=== PATIENT | female | born 1970 | race American Indian/Alaskan Native ===

== ENCOUNTER 2018-07-08 11:26 | Emergency (ER) | payer OTHER ==
[2018-07-08 11:44] VITALS: BP 131/95
--- NOTE | 2018-07-08 11:45 | Emergency Department Report ---
Chief Complaint: Arrhythmia/Palpitations Stated Complaint: DRYNESS IN MOUTH/HEART PALP Time Seen by Provider: 07/08/18 11:39 - HPI History of Present Illness: monday night (07/06/18) took a zyrtec started experiencing lightheadedness, palpitations, warmth of the skin no facial edema, no angioedema, no rash pt was seen at [facility] on monday night, states was given IVF and low dose aspirin began experiencing lightheadedness and palpitations again today PMHx HTN, takes amlodipine/hctz takes it at night, anemia/thalassemia never had elevated HR previously no CP, no SOB, no N/V HR is 123 EKG with sinus tach MSE screening note: Focused history and physical exam performed. Due to findings the following was ordered: EKG, labs ED Disposition for MSE Condition: Stable
[2018-07-08 12:10] LABS: Mean Corpuscular HGB Conc 30 % (30-34); Platelet Count 333 K/mm3 (140-440); Red Blood Count 5.73 M/mm3 (3.65-5.03)
[2018-07-08 12:11] LABS: Hemoglobin 11.2 gm/dl (10.1-14.3); Mean Corpuscular Volume 65 fl (79-97)
[2018-07-08 12:22] LABS: BUN/Creatinine Ratio 18; Blood Urea Nitrogen 11 mg/dL (7-17); Calcium 9.4 mg/dL (8.4-10.2); Hemolysis Index 0
[2018-07-08 13:24] LABS: Total Cells Counted 100
[2018-07-08 13:25] LABS: Giant Platelets Few; Hypochromasia Few; Platelet Estimate Consistent w Auto; Target Cells Few
--- NOTE | 2018-07-08 13:27 | Emergency Department Report ---
ED Palpitations HPI - General Chief Complaint: Arrhythmia/Palpitations Stated Complaint: DRYNESS IN MOUTH/HEART PALP Time Seen by Provider: 07/08/18 11:39 Source: patient Mode of arrival: Ambulatory Limitations: No Limitations - History of Present Illness Initial Comments: Mrs. Trevino is a 47 yo female who presents with malaise, tachycardia, anemia for the past 1 1/2 months since the end of April. Has been recently treated and diagnosed from hypertension. Seen at ED last night. Seen by UC, PCP and manager sales support. Last night developed dry mouth and tachycardia after taking Zyrtec. Diagnosed with tachycardia. Seen at OSH observed at for 6 hours, troponin D-dimer WNL. Tachycardia resolved with IVF. Has recently lost 20 pounds with healthy diet. Now 287 pounds. Complaint: "heart racing", palpitations -: Gradual Context: occured during rest, other (after zyrtec) Associated Symptoms: denies other symptoms (dry mouth) - Related Data Allergies Allergy/AdvReac Type Severity Reaction Status Date / Time Penicillins Allergy Hives Verified 07/08/18 11:28 cetirizine [From Zyrtec] AdvReac Unknown Verified 07/08/18 11:28 ED Review of Systems ROS: Stated complaint: DRYNESS IN MOUTH/HEART PALP Other details as noted in HPI Comment: All other systems reviewed and negative Constitutional: malaise. denies: fever Respiratory: denies: cough, shortness of breath Cardiovascular: palpitations. denies: chest pain ED Past Medical Hx - Past Medical History Previous Medical History?: Yes Hx Hypertension: Yes - Surgical History Past Surgical History?: No - Family History Family history: connective tissue, vascular disease, other (mother has hx of autoimmune disease which led to several strokes beginning in her 40's) - Social History Smoking Status: Never Smoker Substance Use Type: None Other Social History: works as an strategic planning analyst for the [employer] ED Physical Exam - General Limitations: No Limitations General appearance: alert, in no apparent distress - Head Head exam: Present: atraumatic, normocephalic - Eye Eye exam: Present: normal appearance - ENT ENT exam: Present: mucous membranes moist - Neck Neck exam: Present: normal inspection, full ROM - Respiratory Respiratory exam: Present: normal lung sounds bilaterally. Absent: respiratory distress, wheezes, rales, rhonchi - Cardiovascular Cardiovascular Exam: Present: regular rate, normal rhythm, normal heart sounds. Absent: bradycardia, tachycardia, systolic murmur, diastolic murmur, rubs, gallop - GI/Abdominal GI/Abdominal exam: Present: soft, normal bowel sounds. Absent: distended, tenderness, guarding, rebound - Extremities Exam Extremities exam: Present: normal inspection - Back Exam Back exam: Present: normal inspection - Neurological Exam Neurological exam: Present: alert, oriented X3 - Psychiatric Psychiatric exam: Present: normal affect, normal mood - Skin Skin exam: Present: warm, dry, intact, normal color. Absent: rash ED Course Vital Signs 07/08/18 07/08/18 11:40 13:02 Temperature 99.1 F Pulse Rate 123 H Respiratory 18 18 Rate Blood Pressure 131/95 O2 Sat by Pulse 100 99 Oximetry ED Medical Decision Making - Lab Data Result diagrams: 07/08/18 11:52 07/08/18 11:52 Laboratory Results - last 24 hr 07/08/18 07/08/18 11:52 11:52 WBC 7.9 RBC 5.73 H Hgb 11.2 Hct 37.0 MCV 65 L MCH 20 L MCHC 30 RDW 26.0 H Plt Count 333 Lymph % (Auto) Pet Resort Concierge [place] % (Auto) Pet Resort Concierge Eos % (Auto) Pet Resort Concierge Baso % (Auto) Pet Resort Concierge Lymph # Pet Resort Concierge [place] # Pet Resort Concierge Eos # Pet Resort Concierge Baso # Pet Resort Concierge Seg Neutrophils % Pet Resort Concierge Seg Neutrophils # Pet Resort Concierge Sodium 140 Potassium 4.1 Chloride 103.8 Carbon Dioxide 24 Anion Gap 16 BUN 11 Creatinine 0.6 L Estimated GFR > 60 BUN/Creatinine Ratio 18 Glucose 114 H Calcium 9.4 Phosphorus 3.20 Magnesium 2.00 - EKG Data 07/08/18 13:25 EKG obtained 1132 Sinus tachycardia rate 130 beats a minute, normal axis, normal intervals no ST-T signs of ischemia - Medical Decision Making Mrs. Trevino is a 47-year-old female with history of severe obesity who presents with recurrent tachycardia and after taking Zyrtec. Differential diagnosis includes sinus node dysfunction, pulmonary embolism, myocarditis, serotonergic syndrome due to Zyrtec, cardiomyopathy. CBC chemistry within normal limits. BNP 19. CTA chest no evidence of pulmonary embolism. Normal intrathoracic pathology according to CT scan report. Referred to freight forwarder for evaluation of tachycardia. Critical care attestation.: If time is entered above; I have spent that time in minutes in the direct care of this critically ill patient, excluding procedure time. ED Disposition Clinical Impression: Tachycardia, Serotonin syndrome Disposition: DC-01 TO HOME OR SELFCARE Is pt being admited?: No Does the pt Need Aspirin: No Condition: Stable Instructions: Atrial Tachycardia (ED), Serotonin Syndrome (ED) Referrals: CYNTHIA ALEX MD [Primary Care Provider] - 3-5 Days ANTHONY BENÍTEZ MD [Staff Physician] - 3-5 Days
--- NOTE | 2018-07-08 14:37 | Cat Scan Report ---
PROCEDURE: CT ANGIOGRAM OF THE CHEST FOR PULMONARY EMBOLISM TECHNIQUE: Computerized axial tomographic angiography of the chest and pulmonary arteries was perfor med after the IV injection of iodinated nonionic contrast. The image data was postprocessed using max imum intensity projection (MIP) and 2-dimensional multiplanar reformatted (MPR) techniques. The exami nation is specifically tailored to the evaluation of the pulmonary arteries per clinical request. Au tomated exposure control, adjustment of mA and/or kV according to patient size, or iterative reconstr uction dose optimization techniques were utilized. CPT G9637, 64190 HISTORY: Shortness of breath R06.02, chest pain unspecified R07.9 , COMPARISONS: None . FINDINGS: Heart and pericardium: No pericardial effusion or thickening. Thoracic aorta: Normal. Pulmonary vasculature: Normal. No pulmonary emboli. Lymph nodes: No enlarged thoracic lymph nodes. Lungs: Normal. Pleural space: No effusion, thickening, or pneumothorax. Musculoskeletal structures: Mild thoracic spine degenerative changes. Upper abdominal structures: No significant abnormality. IMPRESSION: No evidence of pulmonary emboli. This document is electronically signed by Maisha Silva MD., July 08 2018 02:35:11 PM ET
== END 2018-07-08 16:08 | disposition home or self-care (01) ==
LOC: ED 11:26
DX: R00.0 Tachycardia, unspecified (principal); I10 Essential (primary) hypertension
CPT/HCPCS: 36415; 71275; 80048; 83735; 83880; 84100; 85007; 85025; 93005; 93010; 99284; Q9967

== ENCOUNTER 2018-09-28 18:29 | Emergency (ER) | payer OTHER ==
--- NOTE | 2018-09-28 20:08 | Emergency Department Report ---
Blank Doc - Documentation Documentation: reports feeling hot after work with sweating while in mall today. reports chi lls continued with feeling of increase HR. Brought to that hospital for elevated HR and feeling. Full cardiac work up [facility] 07/2018 and shows heart was normal . Echo/stress test done . drinks a gallon of water daily . denies pain HTN on meds Thallasemia Anemia on meds tacchycardia 120 beats pe minute No CP. No sob Has PCP Dr. Oscar abernathy Weight Loss Physician EKG, Lab, HCG, urinalysis
[2018-09-28 23:26] LABS: Bacteria,Urine 1+ /HPF (Negative); Bilirubin,Urine NEG (Negative); Blood,Urine NEG (Negative); Color,Urine Colorless (Yellow); Protein,Urine <15 mg/dL mg/dL (Negative); Urobilinogen,Urine < 2.0 mg/dL (<2.0); WBC,Urine < 1.0 /HPF (0.0-6.0)
--- NOTE | 2018-09-28 23:39 | Emergency Department Report ---
HPI - General Chief Complaint: Weakness Time Seen by Provider: 09/28/18 20:02 - HPI HPI: Room 6 The patient is a 48-year-old female presenting with chief complaint of fatigue. Patient states she was in her usual state of health earlier today when she left work and went to the mall. The patient states while walking in the mall she began to feel hot and then diaphoretic. The patient states she had to sit down while in one of the stores and the nurse told her heart rate was elevated. The patient remained seated and drink fluid and her heart rate improved. The patient states she then developed dyspnea on exertion. Patient states now she feels as though she has decreased energy. Patient denied ever having chest pain, abdominal pain, nausea/vomiting/diarrhea or shortness of breath at rest. Location: [See above] Duration: [See above] Quality: [See above] Severity: [See above] Modifying factors: [see above] Context: [see above] Mode of transportation: [not driving] ED Past Medical Hx - Past Medical History Previous Medical History?: Yes Hx Hypertension: Yes Additional medical history: Anemia - Surgical History Past Surgical History?: No Hx Appendectomy: Yes - Family History Family history: no significant - Social History Smoking Status: Never Smoker Substance Use Type: None (denies illicit drug use) - Medications Home Medications: Home Medications Medication Instructions Recorded Confirmed Last Taken Type amLODIPine [Norvasc] 1 tab PO DAILY 09/29/18 09/29/18 Unknown History ED Review of Systems ROS: Stated complaint: OVERHEATED Other details as noted in HPI Constitutional: diaphoresis, weakness Eyes: denies: eye pain ENT: denies: throat pain Respiratory: SOB with exertion Cardiovascular: palpitations. denies: chest pain Endocrine: no symptoms reported Gastrointestinal: denies: nausea, vomiting, diarrhea Genitourinary: denies: dysuria Musculoskeletal: denies: back pain Neurological: denies: headache Physical Exam - Physical Exam Vital Signs: Vital Signs 09/28/18 20:00 Temperature 98.2 F Pulse Rate 119 H Respiratory 20 Rate Blood Pressure 161/85 O2 Sat by Pulse 98 Oximetry Vital Signs 09/28/18 09/28/18 09/29/18 20:00 23:43 00:00 Temperature 98.2 F 98.8 F Pulse Rate 119 H 96 H 85 Respiratory 20 14 26 H Rate Blood Pressure 161/85 152/83 Blood Pressure 157/90 [Left] O2 Sat by Pulse 98 99 98 Oximetry 09/29/18 00:31 Temperature Pulse Rate 99 H Respiratory 25 H Rate Blood Pressure 152/83 Blood Pressure [Left] O2 Sat by Pulse 100 Oximetry Physical Exam: GENERAL: The patient is well-developed well-nourished female sitting on stretcher not appearing to be in acute distress. [] HEENT: Normocephalic. Atraumatic. Extraocular motions are intact. Patient has moist mucous membranes. NECK: Supple. Trachea midline CHEST/LUNGS: Clear to auscultation. There is no respiratory distress noted. HEART/CARDIOVASCULAR: Regular. There is no tachycardia. There is no gallop rub or murmur. ABDOMEN: Abdomen is soft, nontender. Patient has normal bowel sounds. There is no abdominal distention. SKIN: There is no rash. There is no edema. There is no diaphoresis. NEURO: The patient is awake, alert, and oriented. The patient is cooperative. The patient has normal speech MUSCULOSKELETAL: There is no evidence of acute injury. ED Course Vital Signs 09/28/18 20:00 Temperature 98.2 F Pulse Rate 119 H Respiratory 20 Rate Blood Pressure 161/85 O2 Sat by Pulse 98 Oximetry ED Medical Decision Making - Lab Data Result diagrams: 09/28/18 23:37 09/28/18 23:37 Laboratory Tests 09/28/18 09/28/18 09/28/18 20:24 22:41 23:37 WBC 11.2 H RBC 5.43 H Hgb 11.3 Hct 35.9 MCV 66 L MCH 21 L MCHC 31 RDW 17.7 H Plt Count 370 Lymph % (Auto) Worship Pastor Nobles % (Auto) Worship Pastor Eos % (Auto) Worship Pastor Baso % (Auto) Worship Pastor Lymph # Worship Pastor [place]les # Worship Pastor Eos # Worship Pastor Baso # Worship Pastor Seg Neutrophils % Worship Pastor Seg Neutrophils # Worship Pastor D-Dimer Sodium Potassium Chloride Carbon Dioxide Anion Gap BUN Creatinine Estimated GFR BUN/Creatinine Ratio Glucose Calcium Magnesium Total Bilirubin AST ALT Alkaline Phosphatase Total Creatine Kinase CK-MB (CK-2) CK-MB (CK-2) Rel Index Troponin T NT-Pro-B Natriuret Pep Albumin TSH Free T4 HCG, Quant < 2 Urine Color Colorless Urine Turbidity Clear Urine pH 7.0 Ur Specific [place] 1.004 Urine Protein <15 mg/dl Urine Glucose (UA) Neg Urine Ketones Neg Urine Blood Neg Urine Nitrite Neg Urine Bilirubin Neg Urine Urobilinogen < 2.0 Ur Leukocyte Esterase Neg Urine WBC (Auto) < 1.0 Urine RBC (Auto) 1.0 U Epithel Cells (Auto) < 1.0 Urine Bacteria (Auto) 1+ 09/28/18 09/28/18 09/28/18 23:37 23:37 23:37 WBC RBC Hgb Hct MCV MCH MCHC RDW Plt Count Lymph % (Auto) [place] % (Auto) Eos % (Auto) Baso % (Auto) Lymph # [place]les # Eos # Baso # Seg Neutrophils % Seg Neutrophils # D-Dimer 368.23 H Sodium 137 Potassium 4.0 Chloride 102.4 Carbon Dioxide 23 Anion Gap 16 BUN 9 Creatinine 0.5 L Estimated GFR > 60 BUN/Creatinine Ratio 18 Glucose 111 H Calcium 9.6 Magnesium 2.00 Total Bilirubin < 0.20 AST 16 ALT 9 Alkaline Phosphatase 78 Total Creatine Kinase 137 H CK-MB (CK-2) 1.4 CK-MB (CK-2) Rel Index 1.0 Troponin T < 0.010 NT-Pro-B Natriuret Pep 53.50 Albumin 4.2 TSH 2.640 Free T4 1.11 HCG, Quant Urine Color Urine Turbidity Urine pH Ur Specific [place] Urine Protein Urine Glucose (UA) Urine Ketones Urine Blood Urine Nitrite Urine Bilirubin Urine Urobilinogen Ur Leukocyte Esterase Urine WBC (Auto) Urine RBC (Auto) U Epithel Cells (Auto) Urine Bacteria (Auto) - EKG Data -: EKG Interpreted by Nd EKG shows normal: sinus rhythm Rate: tachycardia (113 bpm) - EKG Data When compared to previous EKG there are: no significant change Interpretation: unchanged when compared t (07/08/2018) - Radiology Data Radiology results: report reviewed (CT chest), image reviewed (CT chest) [facility] [address] [place] [address] Cat Scan Report Signed Patient: VAN COLE MR#: [id number] : 1970 Acct:[id number] Age/Sex: 48 / F ADM Date: 09/28/18 Loc: ED Attending Dr: Ordering Physician: BREANA NORTON MD Date of Service: 09/29/18 Procedure(s): CT angio chest Accession Number(s): [id number] cc: BREANA NORTON MD CTA CHEST WITH IV CONTRAST INDICATION: PATIENT STATES GOT HOT EARLIER TODAY AND HAD TROUBLE BREATHING. . TECHNIQUE: Axial CT images were obtained through the chest after injection of IV contrast. 3 plane MIP reconstructions were produced. All CT scans at this location are performed using CT dose reduction for ALARA by means of automated exposure control. COMPARISON: None available. FINDINGS: Pulmonary Arteries: No pulmonary emboli. Thoracic Aorta: No acute abnormality. Heart: Normal. Coronary Arteries: No significant calcification. Lungs: No acute air space or interstitial disease. Pleura: No pleural effusion. No pneumothorax. Lymph Nodes: No significant adenopathy. Additional Findings: None. Upper Abdomen: No acute findings. Skeletal Structures: No significant osseous abnormality. IMPRESSION: 1. No CT evidence for pulmonary embolism. 2. No acute findings. Signer Name: Rick Haile MD Signed: 09/29/2018 1:27 AM Workstation Name: [id number] Transcribed By: SW Dictated By: Rick Haile MD Electronically Authenticated By: Rick Haile MD Signed Date/Time: 09/29/18126 DD/ 4 TD/TT: - Differential Diagnosis dehydration, hyperthyroidism, PE, symptomatic anemia Critical care attestation.: If time is entered above; I have spent that time in minutes in the direct care of this critically ill patient, excluding procedure time. ED Disposition Clinical Impression: Tachycardia, Dyspnea on exertion Disposition: -01 TO HOME OR SELFCARE Is pt being admited?: No Does the pt Need Aspirin: No Condition: Stable Additional Instructions: Return to the emergency department immediately should you develop worsening symptoms, fever, inability to tolerate food or liquid or any other concerns. Referrals: PRIMARY CAREMD [Primary Care Provider] - 3-5 Days Time of Disposition: 01:36
[2018-09-29 00:08] LABS: Creatine Kinase MB 1.4 ng/mL (0.0-4.0)
[2018-09-29 00:09] LABS: Alanine Aminotransferase 9 units/L (7-56); Albumin 4.2 g/dL (3.9-5); BUN/Creatinine Ratio 18; Blood Urea Nitrogen 9 mg/dL (7-17); Calcium 9.6 mg/dL (8.4-10.2); Hemolysis Index 2
[2018-09-29 00:19] LABS: Hematocrit 35.9 % (30.3-42.9); Hemoglobin 11.3 gm/dl (10.1-14.3); Mean Corpuscular HGB Conc 31 % (30-34); Platelet Count 370 K/mm3 (140-440); Red Blood Count 5.43 M/mm3 (3.65-5.03); Red Cell Distribution Width 17.7 % (13.2-15.2)
[2018-09-29 00:22] LABS: Free T4 (Free Thyroxine) 1.11 ng/dL (0.76-1.46)
[2018-09-29 00:40] LABS: Mean Corpuscular Volume 66 fl (79-97)
[2018-09-29] MEDS ORDERED: NACL 0.9% 1000 ML 1,000 ML IV ONE (00:49)
--- NOTE | 2018-09-29 01:31 | Cat Scan Report ---
CTA CHEST WITH IV CONTRAST INDICATION: PATIENT STATES GOT HOT EARLIER TODAY AND HAD TROUBLE BREATHING. . TECHNIQUE: Axial CT images were obtained through the chest after injection of IV contrast. 3 plane MIP reconstru ctions were produced. All CT scans at this location are performed using CT dose reduction for ALARA b y means of automated exposure control. COMPARISON: None available. FINDINGS: Pulmonary Arteries: No pulmonary emboli. Thoracic Aorta: No acute abnormality. Heart: Normal. Coronary Arteries: No significant calcification. Lungs: No acute air space or interstitial disease. Pleura: No pleural effusion. No pneumothorax. Lymph Nodes: No significant adenopathy. Additional Findings: None. Upper Abdomen: No acute findings. Skeletal Structures: No significant osseous abnormality. IMPRESSION: 1. No CT evidence for pulmonary embolism. 2. No acute findings. Signer Name: Rick Haile MD Signed: 09/29/2018 1:27 AM Workstation Name: [id number]
[2018-09-29 02:54] LABS: Total Cells Counted 100
[2018-09-29 02:55] LABS: Hypochromasia 1+
[2018-09-29 03:23] VITALS: BP 146/81
== END 2018-09-29 03:00 | disposition home or self-care (01) ==
LOC: ED 18:29
DX: R00.0 Tachycardia, unspecified (principal); R06.00 Dyspnea, unspecified; I10 Essential (primary) hypertension; Z90.49 Acquired absence of other specified parts of digestive tract; Z86.2 Personal history of diseases of the blood and blood-forming organs and certain disorders involving the immune mechanism; Z88.0 Allergy status to penicillin; Z88.8 Allergy status to other drugs, medicaments and biological substances
CPT/HCPCS: 36415; 71275; 80053; 81001; 82550; 82553; 83735; 83880; 84439; 84443; 84484; 84702; 85007; 85025; 85379; 93005; 93010; 99284; J7030; Q9967